=== PATIENT | female | born 2000 | race Caucasian/White ===

== ENCOUNTER 2024-03-16 20:10 | Emergency (ER) | payer OTHER, BC, SELFPAY ==
[2024-03-16 20:11] VITALS: BP 110/78; PULSE 99; RESP 15; TEMP 36.6; O2SAT 97; BMI 37.5
--- NOTE | 2024-03-16 20:33 | RAD_ITS ---
INDICATION: Trauma, knee injury and pain after fall EXAMINATION/TECHNIQUE: X-RAY - RIGHT XR Knee 1 or 2 Views 2 VIEWS COMPARISON: None. FINDINGS: SOFT TISSUES: No soft tissue swelling or gas. No radiopaque foreign body. BONES/JOINTS: No acute fracture. Joint spaces anatomically aligned. RAD/Knee 1 or 2 Views IMPRESSION: No acute bony abnormality. Electronically Signed: Jet Mendez MD at 21:30 EDT ,
--- NOTE | 2024-03-16 20:34 | ED.VIS.LOWEX ---
HPI History of Present Illness Chief Complaint: Fall Informant: patient Narrative Narrative: 23-year-old female presents with what she states is a work-related injury. She states she was at work in the bathroom, she went to stand up after using the toilet and she states that her right lower extremity gave out causing her to fall to her right knee. She denies floor being wet, she states her leg was a problem she states she has never had this happen before, she is now able to bear weight on it but having difficulty because of pain in the knee. PFSH PFSH Medical History no medical history no medical history Allergy/AdvReac Type Severity Reaction Status Date / Time nitrofurantoin Allergy Rash Verified 03/16/24 20:19 phenazopyridine Allergy Rash Verified 03/16/24 20:19 Family History no significant family his Surgical History no surgical history Social History Smoking Status: Never smoker ROS ROS ED Constitutional Constitutional ED: Denies chills or fever(s) Musculoskeletal Musculoskeletal: Reports extremity pain; Denies back pain or neck pain Integumentary Denies Abrasions, rash or wounds Neurologic Neurologic: Denies paresthesias or weakness EXAM Physical Exam Const Vital Signs: 03/16/24 20:11 03/16/24 20:27 Temperature 97.9 F Temperature Source Temporal Pulse Rate 99 Respiratory Rate 15 Respiratory Effort Normal Non-Labored Respiratory Depth Normal Respiratory Pattern Normal Blood Pressure 110/78 Blood Pressure Mean 88 Pulse Ox 97 Oxygen Delivery Method Room Air Room Air Positive well nourished and well developed General Appearance ED: well developed and NAD Neck full ROM and supple Back/Spine normal ROM and normal to inspection Extremity normal to inspection Extremity Narrative: Very limited range of motion of the right knee. Patient is able to flex no more than 10 degrees but she is able to extend fully, the mechanism is intact. There is no deformity. There is no effusion. She is diffusely tender anteriorly at the patella, the tibial tuberosity, and the proximal fibula. Nowhere else. No ankle or other tenderness in the lower leg. She is neurovascular intact distally. The other extremities all move fully without difficulty. Neuro oriented x3, no focal motor deficits and no sensory deficits noted Sensorium / Orientation: alert Psych mental status grossly normal and thought process normal Skin no wounds Rashes: no rashes MDM MDM MDM Narrative Medical decision making narrative: Not able to obtain sunrise view or tunnel view since patient is barely able to move her right knee at all, so obtained 2 view x-ray series of the right knee on my interpretation it is normal. Patient will be given an Gabe wrap, some anti-inflammatories here, and instructions for follow-up with her doctor and/or [facility]. Discharge Plan Triage Chief Complaint: Fall ED Provider: Gera Londono Dx/Rx/DC Orders Clinical Impression: Contusion of knee, right Instructions: Knee Pain Primary Care Provider: Polly Palma Referrals: Corporate,[facility] [Group of Physicians] - As soon as possible Print Language: Pakistani Disposition Disposition: Home, Self Care
[2024-03-16] MEDS: Ibuprofen 600 MG Tablet PO (21:01)
[2024-03-16 21:11] VITALS: BP 119/79; PULSE 90; RESP 15; TEMP 36.6; O2SAT 99
== END 2024-03-16 21:27 | disposition home or self-care (01) ==
PROVIDERS: Emergency Provider Emergency Medicine; PCP Family Medicine; Visit Provider Emergency Medicine
DX: S80.01XA Contusion of right knee, initial encounter (principal); Y99.0 Civilian activity done for income or pay; W18.11XA Fall from or off toilet without subsequent striking against object, initial encounter
CPT/HCPCS: 73560; 99282

== ENCOUNTER → 2025-02-10 | Outpatient (CLI) | payer BC, SELFPAY ==
[2025-02-10 10:15] LABS: Absolute Neutrophil Count 7.8 X10^3/uL (2.0-7.7); Basophil# 0.01 X10^3/uL; Basophil% 0.1 % (0-1); Eosinophil# 0.05 X10^3/uL; Eosinophils% 0.5 % (0-5); Hematocrit 39.3 % (37-47); Hemoglobin 12.8 g/dL (12.0-15.0); Lymphocyte % 20.9 % (19-41); Mean Corp Hgb Conc 32.6 g/dL (32-36); Mean Corpuscular Volume 79.9 fL (81-99); Mean Platelet Vol. 11.4 fl (6.2-12.0); Monocyte# 0.48 X10^3/uL; Monocyte% 4.6 % (0-10); NRBC Flagged by Analyzer 0 % (0-5); Neutrophil # 7.77 X10^3/uL (2.7-7.7); Neutrophil % 73.6 % (47-70); Platelet Count 290 K/mm3 (150-450); RBC Distribution Width CV 13.4 % (11.6-14.6); RBC Distribution Width SD 38.8 fl (35.1-43.9); Red Blood Count 4.92 M/mm3 (4.2-5.4); White Blood Count 10.5 K/mm3 (4.4-11.0)
[2025-02-10 11:15] LABS: ALB/GLOB Ratio 1.1 RATIO (0.9-2.4); AST(SGOT) 15 U/L (<=31); Alanine Aminotransfer ALT/SGPT 16 U/L (<=34); Alkaline Phosphatase 89 U/L (35-104); Anion Gap 15 (5-15); BUN 13 mg/dL (4-19); BUN/Creat Ratio 14.2 RATIO (10-20); Calcium,Total 9.7 mg/dL (7.6-11.0); Carbon Dioxide 20.8 mmol/L (21.0-32.0); Chloride 103 mmol/L (98-108); Cholesterol 174 mg/dL (<=190); Creatinine, Serum 0.94 mg/dL (0.70-1.20); EST Glomerular Filtration Rate 88 (>60); Globulin 3.8 g/dL (2.2-4.2); Glucose 85 mg/dL (70-99); High Density Lipoprotein 57 mg/dL; Low Density Lipoprotein Calc. 72 mg/dL; Potassium 4.3 mmol/L (3.3-5.1); Protein, Total 7.8 g/dL (5.9-8.4); Sodium Level 139 mmol/L (133-145); Total Bilirubin 0.29 mg/dL (0.00-1.30); Triglycerides 228 mg/dL; Very Low Density Lipoprotein 46 mg/dL (5-40); cholesterol:hdl ratio screen 3.07
[2025-02-10 11:43] LABS: T3 Total - Triiodothyronine 1.78 ng/mL (0.80-2.00); Vitamin B12 364 pg/mL (180-914); Vitamin D,25 Hydroxy 41.4 ng/mL (30-100)
[2025-02-11 04:07] LABS: PROLACTIN 5.7 ng/mL (4.8-33.4)
== END | disposition home or self-care (01) ==
PROVIDERS: PCP Family Medicine
DX: F31.63 Bipolar disorder, current episode mixed, severe, without psychotic features (principal); F90.2 Attention-deficit hyperactivity disorder, combined type; F41.9 Anxiety disorder, unspecified; Z79.899 Other long term (current) drug therapy
CPT/HCPCS: 36415; 80053; 80061; 82306; 82607; 82746; 84146; 84443; 84480; 85025

== ENCOUNTER 2025-02-11 07:51 | Emergency (ER) | payer BC, SELFPAY ==
[2025-02-11 07:51] VITALS: BP 133/85; PULSE 91; RESP 16; TEMP 36.8; O2SAT 98; BMI 37.6
--- NOTE | 2025-02-11 08:07 | RAD_ITS ---
PROCEDURE: CHEST PA AND LATERAL 02/11/2025 REASON FOR EXAM: PAIN Chest pain and arm numbness. TECHNIQUE: CHEST PA AND LATERAL COMPARISON: None FINDINGS: Hardware: None Heart: The heart size is normal. Mediastinum: The mediastinal contour is unremarkable. Lungs: The lungs are clear. Bones: The bones are unremarkable. RAD/Chest PA and Lateral IMPRESSION: NO ACUTE FINDINGS. Reading Location: [id number]
--- NOTE | 2025-02-11 08:07 | EKG12_ITS ---
Test Reason : Blood Pressure : */* mmHG Vent. Rate : 85 BPM Atrial Rate : 85 BPM P-R Int : 150 ms QRS Dur : 76 ms QT Int : 366 ms P-R-T Axes : 56 53 31 degrees QTcB Int : 435 ms Normal sinus rhythm Normal ECG Confirmed by NORBERTO JUAREZ, DEIDRE ([id number]), food expeditor JUAN CRUZ ([id number]) on 02/12/2025 11:08:49 AM Referred By: Confirmed By: DEIDRE THORNTON MD
--- NOTE | 2025-02-11 08:17 | ED.VIS.CHEST ---
HPI History of Present Illness Chief Complaint: Chest Pain Informant: patient and parent Narrative Narrative: Here with mother right side chest pain on and off since Monday today pain down the right arm. No neck pain. No abdominal pain. No nausea or vomiting. No trouble eating. No cough. No recent travel surgery or immobilizations. No history PE or DVT. Took aspirin and Pepto-Bismol. History of anxiety and depression on medications. Prior Similar Symptoms: No PFSH PFSH Medical History no medical history Allergy/AdvReac Type Severity Reaction Status Date / Time nitrofurantoin Allergy Rash Verified 02/11/25 07:53 phenazopyridine Allergy Rash Verified 02/11/25 07:53 Social History Smoking Status: Never smoker ROS ROS ED Constitutional Constitutional ED: Denies fever(s) or poor appetite Eyes Eyes: Denies discharge from eye(s) or erythema ENT ENT ED: Denies discharge from eye(s), dysphagia or sore throat Cardiovascular Cardiovascular: Reports chest pain; Denies none Respiratory/Chest Respiratory/Chest: Denies cough or wheezing Gastrointestinal Gastrointestinal: Denies diarrhea or vomiting Genitourinary Genitourinary ED: Denies change in urinary stream Musculoskeletal Musculoskeletal: Denies none Integumentary Denies rash or wounds Neurologic Neurologic: Denies none EXAM Physical Exam Const Vital Signs: 02/11/25 07:51 02/11/25 08:45 02/11/25 08:51 Temperature 98.3 F Temperature Source Oral Pulse Rate 91 89 Respiratory Rate 16 16 Respiratory Effort Normal Non-Labored Blood Pressure 133/85 H 107/73 Blood Pressure Mean 101 84 Pulse Ox 98 100 Oxygen Delivery Method Room Air Room Air 02/11/25 09:09 Temperature 98.3 F Temperature Source Pulse Rate 92 Respiratory Rate 16 Respiratory Effort Blood Pressure 107/73 Blood Pressure Mean 84 Pulse Ox 98 Oxygen Delivery Method Positive well nourished and well developed General Appearance ED: well developed and NAD HEENT Reports moist mucous membranes normocephalic and atraumatic Eyes General Eye ED: Yes normal appearance of both eyes Neck full ROM Neck Narrative: Negative Spurling's the neck bilaterally. Chest Wall inspection of chest normal and palpation of chest normal Chest: Negative for tenderness Resp normal respiratory effort and normal air movement Resp Narrative: Symmetric breath sounds. Effort and Inspection: symmetric chest movement; Negative for respiratory distress Cardio regular rate, regular rhythm and no murmurs Peripheral Pulses: pulses 2+ throughout GI normal to inspection, nondistended, normoactive bowel sounds GI Narrative: Negative Knig's or McBurney's tenderness. Palpation: Negative for guarding or rebound tenderness present Extremity normal to inspection General Extremety ED: Negative for edema or tenderness General Extremity: Negative for edema Neuro oriented x3 and no sensory deficits noted Sensorium / Orientation: awake and alert Skin no rashes or lesions noted and no wounds MDM MDM MDM Narrative Medical decision making narrative: Interventions / MDM: Differential diagnosis: Nonspecific chest pain, right arm pain Diagnosis considered but do not suspect: Cervical radiculopathy however Spurling is negative. PE however PERC negative. Pneumothorax however x-ray negative. No clinical biliary colic. My EKG interpretation: Sinus rate of 85, no ST changes ST T wave version lead III nonspecific. QTc 435. Imaging independently reviewed and interpreted by myself: 2 view chest x-ray: No acute process. Also read by radiology. External documents reviewed: N/A Test considered but not ordered:N/A ED course: Nonspecific right-sided chest pains. No cough no dyspnea. PERC negative. Spurling's negative therefore low concerns for cervical radiculopathy. No biliary colic symptoms. EKG obtained normal. Two-view chest x-ray obtained also negative. Treated with ibuprofen. Discussed nonspecific symptoms time. Should continue ibuprofen at home. All questions were answered. Re-evaluation: stable Disposition discussed with patient/family/significant other: Case discussed with consulting clinician: N/A This note was generated with [employer] dictation software. It may contain incorrect words, spelling, and punctuation that were not noted in checking the note before signing. Radiography Diagnostic Testing: Clinical Impression(s) from Imaging Studies Chest X-Ray 02/11/25 08:07 IMPRESSION: NO ACUTE FINDINGS. Reading Location: [facility] Discharge Plan Triage Chief Complaint: Chest Pain ED Provider: Moncho Dawson Dx/Rx/DC Orders Clinical Impression: Atypical chest pain, Arm pain, right Instructions: ED Chest Pain, Uncertain Cause Stand Alone Forms: Work / School Excuse Primary Care Provider: Polly Palma Referrals: Polly Palma DO [Primary Care Provider] - 5-7 Days Activity Restrictions/Additional Instructions: EKG chest x-ray negative. Continue Motrin. Follow-up with your doctor. Print Language: [place] Disposition Disposition: Home, Self Care Discharge Date/Time: 02/11/25 09:16
[2025-02-11] MEDS: Ibuprofen 600 MG Tablet PO (08:44)
[2025-02-11 08:51] VITALS: BP 107/73; PULSE 89; RESP 16; O2SAT 100
[2025-02-11 09:09] VITALS: BP 107/73; PULSE 92; RESP 16; TEMP 36.8; O2SAT 98
== END 2025-02-11 09:16 | disposition home or self-care (01) ==
PROVIDERS: Emergency Provider Emergency Medicine; PCP Family Medicine; Visit Provider Emergency Medicine
DX: R07.89 Other chest pain (principal); M79.601 Pain in right arm
CPT/HCPCS: 71046; 93005; 99282